=== PATIENT | female | born 1970 | race Caucasian/White ===

== ENCOUNTER 2023-08-12 05:30 | Day surgery (SDC) | payer OTHER ==
[2023-08-05 09:55] LABS: URINE APPEARANCE Clear; URINE BILIRRUBIN Negative (NEGATIVE); URINE BLOOD Negative; URINE COLOR Yellow; URINE GLUCOSE Negative (NEGATIVE); URINE LEUKOCYTE Small; URINE NITRATE Positive; URINE PROTEIN Negative (NEGATIVE); URINE UROBILINOGEN 0.2 E.U./dl
[2023-08-05 09:59] LABS: URINE EPITHELIAL CELLS 2.7 uL (0.0-38.8); URINE RBC 2.4 uL (0.0-20.8); URINE WBC 76.6 uL (0.0-23.2)
[2023-08-05 10:13] LABS: URINE BACTERIA > 9821.5 uL (0.0-1933)
[2023-08-05 10:20] LABS: HEMATOCRIT 42.4 % (36.0-45.00); HEMOGLOBIN 14.8 g/dL (12.0-15.00); MEAN CELL VOLUME 90.1 fL (80.00-100.00); MEAN CORPUSCULAR HEMOGLOBIN 31.4 pg (27.00-32.0); MEAN CORPUSCULAR HGB CONC 34.9 g/dl (32.0-36.0); PLATELET COUNT 289 K/uL (150-450); RED CELL DISTRIBUTION WIDTH 12.7 % (11.5-14.5)
[2023-08-05 10:39] LABS: ALBUMIN 3.9 gm/dL (3.4-5.0); BILIRUBIN TOTAL 0.63 mg/dL (0.3-1.2); CALCIUM 9.3 mg/dL (8.5-10.1); CREATININE SERUM 0.84 mg/dL (0.55-1.02); GFR 70.92; GLOBULINA 3.5 G/DL (2.4-3.5); POTASSIUM 4.09 mEq/L (3.5-5.1); TOTAL PROTEIN 7.4 gm/dL (6.4-8.2)
[2023-08-05 10:58] LABS: INR 1.04; PARTIAL THROMBOPLASTIN TIME 28.5 SECONDS (22.0-34.0); PROTHROMBIN TIME 10.9 SECONDS (9.0-11.5)
[~2023-08-12] VITALS: Ht 167.6 cm; Wt 73.0 kg
[~2023-08-12 05:30] MED LIST: LEVO-T75 MCG PO
[2023-08-12] MEDS ORDERED: CEFAZOLIN SODIUM 1,000 MG VIAL ONE (07:07)
[2023-08-12] MEDS ORDERED: BUPIVACAINE HCL/PF 0.5% 30ML ML ONE (07:08)
[2023-08-12] MEDS ORDERED: LIDOCAINE HCL 1%/Epi 20ML VIAL IJ ONE (07:08)
[2023-08-12] MEDS ORDERED: CEFAZOLIN SODIUM 1,000 MG VIAL IV ONE (08:15)
[2023-08-12] MEDS ORDERED: hydrALAZINE HCL 20 MG VIAL ONE (09:17)
[2023-08-12] MEDS ORDERED: SUGAMMADEX SODIUM 200 MG/2 ML VIAL IV ONE ×2 (09:18→10:30)
[2023-08-12] MEDS ORDERED: hydrALAZINE HCL 20 MG VIAL IV ONE (10:30)
[2023-08-13] MEDS ORDERED: LIDOCAINE HCL 1% 200MG/20ML VIAL IJ ONE (15:30)
[2023-08-13] MEDS ORDERED: BUPIVACAINE HCL 30 ML VIAL IJ ONE (15:30)
== END 2023-08-12 11:55 | disposition home or self-care (01) ==
LOC: CIR.AMB 05:30
PROVIDERS: ATTEND Surgery
DX: K80.10 Calculus of gallbladder with chronic cholecystitis without obstruction (principal); E03.9 Hypothyroidism, unspecified; Z20.822 Contact with and (suspected) exposure to COVID-19